=== PATIENT | female | born 1995 | race Caucasian/White ===

== ENCOUNTER 2019-08-25 12:28 | Emergency (ER) | payer MEDICAID ==
[~2019-08-25] VITALS: Ht 162.6 cm; Wt 53.2 kg
[2019-08-25 12:29] VITALS: BP 104/83
[2019-08-25] MEDS ORDERED: ondansetron 4mg rapidly disintigrating tab PO ONE (12:45)
[2019-08-25] MEDS ORDERED: LORazepam 2 mg/ml vial IM ONE (12:45)
--- NOTE | 2019-08-25 12:48 | NUR ---
Swapna schmidt in [facility] - 08/25/19 at 1249 by MATT RT AT BEDSIDE
[2019-08-25 13:09] LABS: CLARITY,URINE CLEAR (Clear); COLOR,URINE YELLOW (Yellow); GLUCOSE, URINE NEGATIVE (Neg); KETONES,URINE NEGATIVE (Neg); LEUKOCYTE ESTERASE ,URINE NEGATIVE (Neg); NITRITES, URINE NEGATIVE (Neg); OCCULT BLOOD,URINE SMALL (Neg); PH,URINE 8.5 (4.8-8.0); PROTEIN,URINE NEGATIVE (Neg); URINE HCG NEGATIVE (NEG); UROBILINOGEN,URINE 0.2 E.U/dL (0.2-1.0)
[2019-08-25 13:10] LABS: UA COLLECTION TYPE CLN CATCH MIDSTREAM
[2019-08-25 13:16] LABS: BACTERIA,URINE FEW /HPF (Neg); MUCUS STRANDS NONE SEEN /LPF (Neg); RBC,URINE 0-2 /HPF (0-2); SQUAMOUS EPITHELIAL CELL,UR MANY /LPF (FEW); WBC,URINE NONE SEEN /HPF (0-4)
[2019-08-25] MEDS ORDERED: ONDA8TAB6 PO (13:25)
== END 2019-08-25 15:21 | disposition home or self-care (01) ==
LOC: ER 12:28
DX: F41.0 Panic disorder [episodic paroxysmal anxiety] (principal); R06.82 Tachypnea, not elsewhere classified; R11.2 Nausea with vomiting, unspecified; R20.2 Paresthesia of skin; R20.0 Anesthesia of skin; Z79.899 Other long term (current) drug therapy
CPT/HCPCS: 81001; 81025; 93005; 96372; 99284; J2060